=== PATIENT | female | born 1985 | race Caucasian/White ===

== ENCOUNTER 2016-08-17 15:21 | Emergency (ER) | payer MEDICAID, OTHER ==
[~2016-08-17] VITALS: Ht 167.6 cm; Wt 68.0 kg
[~2016-08-17 15:21] MED LIST: ACET325T33 PO; CEPH-443 PO
[2016-08-17 15:23] VITALS: Ht 167.6 cm; Wt 68.0 kg
[2016-08-17] MEDS ORDERED: ONDANSETRON (ODT) 4 MG TAB ODT STA (16:01)
[2016-08-17] MEDS ORDERED: HYDROCODONE/APAP (5/325) TAB PO ONE (16:30)
--- NOTE | 2016-08-17 16:57 | RADRPT ---
PROCEDURE: CT Head without. CLINICAL INDICATION: Trauma. TECHNIQUE: The study was performed utilizing a multi-slice, multidetector CT scanner. Direct spira l 1 mm axial sections were obtained through the head without the use of intravenous contrast materia l. 1 or more of the following dose reduction techniques were utilized: Automated exposure control, adjustment of the mA and/or kV according to patient's size, iterative reconstruction technique. Co khanh and sagittal reformations were obtained. The images were reviewed on a PACS workstation. RADIATION DOSE: CTDIvol: 44.8 mGyDLP: 720.2 mGy-cm COMPARISON: No prior studies are available for comparison. FINDINGS: There is no intracranial hemorrhage, extra-axial fluid collection, mass lesion, midline shift or hyd rocephalus. The ventricles, sulci and cisterns are within normal limits. The white matter is unrem arkable. The santana-white matter differentiation is preserved. The basal cisterns are patent. The m idline structures are intact. The orbits, calvarium and extracranial soft tissues are normal in john apul earance. The visualized paranasal sinuses, mastoid air cells and middle ear cavities are normally ae rated. IMPRESSION: 1. No acute intracranial abnormality. No intracranial hemorrhage, extra-axial fluid collection, ma ss lesion or hydrocephalous. RPTAT: HGAS .Martir Hernandez MD, MD Date Time Electronically viewed and signed by .Martir Hernandez MD, MD on 08/17/2016 16:57 .S/
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
[2016-08-17] MEDS ORDERED: morphine 10 MG INJ IM ONE (17:30)
[2016-08-17] MEDS ORDERED: HYDR-906 PO (17:34)
[2016-08-17] MEDS ORDERED: IBUP-1542 PO (17:34)
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
== END 2016-08-17 20:22 | disposition home or self-care (01) ==
LOC: FTE 15:21
DX: S82.142A Displaced bicondylar fracture of left tibia, initial encounter for closed fracture (principal); S09.90XA Unspecified injury of head, initial encounter; R11.0 Nausea; V18.4XXA Pedal cycle driver injured in noncollision transport accident in traffic accident, initial encounter
CPT/HCPCS: 29505; 70450; 73562; 96372; J2270; Z7502; Z7610